=== PATIENT | male | born 1980 | race Two or more races ===

== ENCOUNTER 2017-03-16 05:07 | Emergency (ER) | payer SELFPAY ==
[2017-03-16 05:32] LABS: URINE BILIRUBIN NEGATIVE (NEGATIVE); URINE BLOOD 4+ (NEGATIVE); URINE GLUCOSE (UA) NEGATIVE (NEGATIVE); URINE LEUKOCYTE ESTERASE 2+ (NEGATIVE); URINE NITRITE POSITIVE (NEGATIVE); URINE PROTEIN 2+ (NEGATIVE); URINE UROBILINOGEN 1 mg/dL (0-1 mg/dl)
[2017-03-16 05:33] LABS: URINE APPEARANCE CLOUDY; URINE COLOR YELLOW
[2017-03-16] MEDS ORDERED: SULFAMETHOXAZOLE 800 MG/TRIMETHOPRIM 160 MG TABLET ONE (05:44)
[2017-03-16 05:48] LABS: URINE BACTERIA 3+; URINE EPITHELIAL CELLS FEW /hpf; URINE RBC >100 /hpf; URINE WBC >100 /hpf
[2017-03-17 15:36] LABS: CHLAMYDIA BD Negative (Negative); N.GONORRHOEAE BD Negative (Negative); SOURCE Urine (())
== END 2017-03-16 06:27 | disposition home or self-care (01) ==
LOC: ED 05:07
DX: N39.0 Urinary tract infection, site not specified (principal); R31.9 Hematuria, unspecified